=== PATIENT | male | born 2000 | race Two or more races ===

== ENCOUNTER 2024-05-31 17:30 | Emergency (ER) | payer OTHER ==
[~2024-05-31] VITALS: Ht 185.4 cm; Wt 61.2 kg
[2024-05-31 20:03] LABS: HEMOGLOBIN 15.6 g/dL (13-16.00); MEAN CELL VOLUME 86.9 fL (80.0-100.00); MEAN CORPUSCULAR HEMOGLOBIN 30.2 pg (27.00-32.0); MEAN CORPUSCULAR HGB CONC 34.8 g/dl (32.0-36.0); PLATELET COUNT 321 K/uL (150-450); RED BLOOD COUNT 5.18 M/uL (4.00-6.00); RED CELL DISTRIBUTION WIDTH 13.2 % (11.5-14.5)
[2024-05-31 20:07] LABS: ALBUMIN 4.4 gm/dL (3.4-5.0); BILIRUBIN TOTAL 2.23 mg/dL (0.3-1.2); CALCIUM 9.7 mg/dL (8.5-10.1); CREATININE SERUM 1.29 mg/dL (0.70-1.30); GFR 69.02; GLOBULINA 3.3 G/DL (2.4-3.5); POTASSIUM 4.19 mEq/L (3.5-5.1); TOTAL PROTEIN 7.7 gm/dL (6.4-8.2)
[2024-05-31 20:39] LABS: PH,URINE 6.5 (5.0-8.0); URINE APPEARANCE Clear; URINE BILIRRUBIN Negative (NEGATIVE); URINE BLOOD Negative; URINE COLOR Yellow; URINE GLUCOSE Negative (NEGATIVE); URINE KETONE Negative (NEGATIVE); URINE LEUKOCYTE Negative; URINE NITRATE Negative; URINE PROTEIN Negative (NEGATIVE)
[2024-05-31 20:43] LABS: URINE BACTERIA 4.8 uL (0.0-1933); URINE WBC 2.8 uL (0.0-23.2)
[2024-05-31 20:57] LABS: URINE EPITHELIAL CELLS 0.7 uL (0.0-38.8); URINE RBC 0.8 uL (0.0-20.8)
[2024-05-31 21:19] LABS: BILIRUBIN,CONJUGATED 0.4 mg/dL (0.0-0.2); BILIRUBIN,UNCONJUGATED 1.83 mg/dL (0.0-0.6)
[2024-05-31] MEDS ORDERED: ACETAMINOPHEN 500 MG GEL..CAP PO ONE (21:23)
[2024-05-31] MEDS ORDERED: ACETAMINOPHEN 325 MG TABLET PO STA (21:23)
== END 2024-05-31 22:28 ==
LOC: ER 17:32
PROVIDERS: General Practice
DX: R53.1 Weakness (principal); E86.0 Dehydration